=== PATIENT | female | born 1995 | race Caucasian/White ===

== ENCOUNTER → 2017-06-19 | Outpatient (CLI) | payer OTHER ==
[2017-06-19 17:15] LABS: PLATELET COUNT, AUTOMATED 326 K/uL (150-450)
== END ==
LOC: LAB 16:42
DX: Z56.9 Unspecified problems related to employment (principal); Z79.899 Other long term (current) drug therapy
CPT/HCPCS: 36415; 80175; 82040; 82247; 82306; 82310; 82374; 82435; 82565; 82947; 84075; 84132; 84155; 84295; 84450; 84460; 84520; 85025